=== PATIENT | male | born 1945 | race Caucasian/White ===

== ENCOUNTER 2018-03-12 05:24 | Day surgery (SDC) | payer OTHER, BC ==
[~2018-03-12] VITALS: Ht 188 cm; Wt 89.8 kg
[~2018-03-12 05:24] MED LIST: ALLEGRA ALLERG180 MG PO; BENICAR20 MG PO; CO Q-10100 MG PO; COMBIGAN EYE DR10 ML OPHTHALMIC; LIPITOR10 MG PO; SINGULAIR 10 MG10 M1 PO
[2018-03-12 09:57] VITALS: BP 164/92
[2018-03-12 11:51] VITALS: BP 164/92
--- NOTE | 2018-03-13 11:52 | O ---
[facility] [place] [address] OPERATIVE REPORT Name: ALVARADO HORTA Room #: [place] [facility] [place]#: [id number] Admission: 03/12/18 Attend Phys: Abel Ramos MD Discharge: 03/12/18 Date of : 47 Report #: [id number] THIS REPORT FOR: //name// CC: [facility] physician/PCP Abel Ramos DATE OF SERVICE: 03/12/2018 PREOPERATIVE DIAGNOSES: Chronic sinusitis with polyposis. POSTOPERATIVE DIAGNOSES: Chronic sinusitis with polyposis. PROCEDURE: Revision image-guided endoscopic sinus surgery with revision bilateral ethmoidectomy, revision right sphenoidotomy, partial excision right middle turbinate and nasal polypectomy. SURGEON: Abel Ramos M.D. ANESTHESIA: General LMA. INDICATIONS: See H and P. FINDINGS: Moderate amount of polyps were noted in the left ethmoid cavity in both anterior and posterior portions. There is a small amount of septal polyps located posteriorly on the left septum. These were not obstructing the sphenoid ostia, and the sphenoid ostia was patent. The left maxillary ostia was patent. On the right, there was more substantial polyposis filling in mostly the entire ethmoid cavity. The nasal antral window was patent. The right middle turbinate was almost fully demineralized. Substantial amount of polyps were noted on the right mid to posterior septum, obscuring the right sphenoid sinus ostia. TECHNIQUE: After obtaining consent, he was brought to the operating suite, appropriate time out was performed. General LMA anesthesia was obtained, the bed was turned 90 degrees. Nose was prepped and draped in usual sterile fashion. Under direct visualization, local anesthetic ____ was infiltrated in the nasal polyps. The Arrively image guidance device was registered appropriately, and fiducials were selected and accuracy was confirmed within 1 mm. I used both the suction image-guided portion as well as the 12-degree microdebrider blade portion throughout the case. Attention was first turned to the left side under direct visualization. The middle turbinate was noted to be in good position. I proceeded to first do a revision ethmoidectomy in an anterior to posterior dissection, removing the polyposis back towards the sphenoid ostia and up to the fovea. The frontal sinus orifice was easily probed patent. The middle turbinate is fairly well mineralized. After complaining ethmoidectomy, I bilateralized the [address] [address] OPERATIVE REPORT Name: ALVARADO HORTA Room #: DEP [facility].Jovi.#: [id number] Admission: 03/12/18 Attend Phys: Abel Ramos MD Discharge: 03/12/18 Date of : 47 Report #: [id number] turbinate. There were some polyps not obstructing the sphenoid on this side and were attached to the septum. Given their small nature, I elected to leave them alone. A hemostatic pack was placed on this side. I turned my attention to the right side. More extensive nasal polyps noted. The maxillary ostia was widely patent. The middle turbinate was found to be almost fully demineralized. I first proceeded to do a polypectomy to expose the middle turbinate, and I proceeded to do a revision ethmoidectomy in an anterior to posterior and inferior to superior direction. This required removal of some of the bony ethmoid that had not been previously removed. Multiple polyps were located more in the posterior ethmoid air cells. This took me back to the opening the sphenoid where there was a large amount of polyps covering the sphenoid ostia. These were enlarged. The ostia was larger than microdebrider to admit the microdebrider and suction easily. I then turned back and removed the inferior half of the middle turbinate, which was fully demineralized and polypoid in nature. This exposed a fair amount of septal polyps, and I took these down at least to the point where they are not obstructing the airway. They were very sessile in nature and large based on their attachment to the septum. At that time, hemostasis was checked and confirmed. I then put a Propel stent between the middle turbinate and the lateral nasal wall and the ethmoid defect on the left side. On the right side, with missing middle turbinate, the medial aspect of the Propel stent actually rested against the remnants of the septal polyps. A single piece of Xerogel was cut in half and placed in the ethmoid defects bilaterally and inflated with saline. I then suctioned free the nasopharynx. There is no active bleeding at the end of case. She was turned back over to Anesthesia in stable condition. ESTIMATED BLOOD LOSS: 10 mL. <ELECTRONICALLY SIGNED> By: Abel Ramos MD 03/13/18 1152 [id number] Abel Ramos MD /nt
== END 2018-03-12 12:20 | disposition home or self-care (01) ==
LOC: OR 05:24 → TBA 05:25 → OR 09:04
DX: J32.8 Other chronic sinusitis (principal); J33.9 Nasal polyp, unspecified; I10 Essential (primary) hypertension; E78.5 Hyperlipidemia, unspecified; Z87.891 Personal history of nicotine dependence; Z85.820 Personal history of malignant melanoma of skin; Z85.46 Personal history of malignant neoplasm of prostate; Z98.890 Other specified postprocedural states; Z98.41 Cataract extraction status, right eye; Z98.42 Cataract extraction status, left eye; Z79.899 Other long term (current) drug therapy
CPT/HCPCS: 50010; 50101; 50286; 50386; 50398; 50993; 51316; 51634; 52290; 52291; 53618; 56526; 56528; 62110; 62900; 64037; 70005